=== PATIENT | male | born 1995 ===

== ENCOUNTER 2017-07-16 15:01 | Outpatient (CLI) | payer OTHER ==
[~2017-07-16] VITALS: Ht 175.3 cm; Wt 62.6 kg
== END 2017-07-16 15:20 | disposition home or self-care (01) ==
LOC: OFIC 805 15:01
DX: J03.80 Acute tonsillitis due to other specified organisms (principal); K21.9 Gastro-esophageal reflux disease without esophagitis

== ENCOUNTER 2020-01-26 13:52 | Outpatient (CLI) | payer OTHER | END 2020-01-26 16:40 | disposition home or self-care (01) | LOC: OFIC 805 13:52 | PROVIDERS: ATTEND Otolaryngology | DX: H60.8X1 Other otitis externa, right ear (principal); H91.8X1 Other specified hearing loss, right ear ==

== ENCOUNTER → 2020-02-16 | Outpatient (CLI) | payer OTHER | END | disposition home or self-care (01) | LOC: OFIC 805 15:19 | PROVIDERS: ATTEND Otolaryngology | DX: H60.8X1 Other otitis externa, right ear (principal); H61.21 Impacted cerumen, right ear; H90.41 Sensorineural hearing loss, unilateral, right ear, with unrestricted hearing on the contralateral side ==

== ENCOUNTER → 2020-03-15 | Outpatient (CLI) | payer OTHER | END | disposition home or self-care (01) | LOC: OFIC 805 13:05 | PROVIDERS: ATTEND Otolaryngology | DX: H60.8X1 Other otitis externa, right ear (principal); H61.21 Impacted cerumen, right ear; H90.41 Sensorineural hearing loss, unilateral, right ear, with unrestricted hearing on the contralateral side ==

== ENCOUNTER 2020-03-26 03:43 | Emergency (ER) | payer OTHER ==
[~2020-03-26] VITALS: Ht 175.3 cm; Wt 86.2 kg
== END 2020-03-26 08:18 | disposition home or self-care (01) ==
LOC: ER 03:43
DX: T40.8X1A Poisoning by lysergide [LSD], accidental (unintentional), initial encounter (principal); R00.2 Palpitations; R44.2 Other hallucinations; F41.1 Generalized anxiety disorder; Y92.89 Other specified places as the place of occurrence of the external cause

== ENCOUNTER → 2020-04-14 | Outpatient (CLI) | payer OTHER | END | disposition home or self-care (01) | LOC: OFIC 805 09:45 | PROVIDERS: ATTEND Otolaryngology | DX: H60.8X1 Other otitis externa, right ear (principal) ==